=== PATIENT | female | born 1955 | race Caucasian/White ===

== ENCOUNTER 2023-04-03 21:47 | Emergency (ER) | payer MEDICARE | END 2023-04-03 23:55 | disposition home or self-care (01) | LOC: JP.ED 21:47 | DX: S60.211A Contusion of right wrist, initial encounter (principal); S70.01XA Contusion of right hip, initial encounter; S00.03XA Contusion of scalp, initial encounter; Z79.899 Other long term (current) drug therapy; W18.30XA Fall on same level, unspecified, initial encounter | CPT/HCPCS: 73110-26-RT; 73110-RT; 99283 ==